=== PATIENT | female | born 1975 | race Caucasian/White ===

== ENCOUNTER 2017-05-18 05:25 | Day surgery (SDC) | payer OTHER ==
[~2017-05-18] VITALS: Ht 165.1 cm; Wt 52.0 kg
[~2017-05-18 05:25] MED LIST: FIORICET 50-301 EACH PO; FIORICET,ESG1 TABLET PO; LOESTRIN FE PO; NAPROSYN500 MG PO; NEXIUM40 MG PO; SPRIX NS; VALACYCLOVIR500 MG PO; VYVANSE50 MG PO; ValTRex PO; Zocor PO; [UNRECOGNIZED DRUG - REMARK]; [UNRECOGNIZED DRUG - REMARK]
[2017-05-18] MEDS ORDERED: TYLENOL EXTRA500 MG PO (05:51)
[2017-05-18 06:03] VITALS: BP 133/62
[2017-05-18 09:48] VITALS: BP 129/72
[2017-05-18 10:50] VITALS: BP 98/60
[2017-05-18 10:59] VITALS: BP 95/54
== END 2017-05-18 11:02 | disposition home or self-care (01) ==
LOC: SDC 05:25
PROC: 0YU60JZ Supplement Left Inguinal Region with Synthetic Substitute, Open Approach (ICD-10-PCS; principal; 2017-05-18)
DX: K40.90 Unilateral inguinal hernia, without obstruction or gangrene, not specified as recurrent (principal); Z22.322 Carrier or suspected carrier of Methicillin resistant Staphylococcus aureus; Z87.891 Personal history of nicotine dependence
CPT/HCPCS: C1781; J0131; J0330; J0690; J1100; J1885; J2250; J2405; J2550; J2704; J3010; Q0175

== ENCOUNTER → 2018-04-12 | Outpatient (CLI) | payer OTHER ==
[~2018-04-12] MED LIST changes: +TYLENOL EXTRA500 MG PO
== END | disposition home or self-care (01) ==
LOC: NUC 08:20
DX: R68.81 Early satiety (principal)
CPT/HCPCS: 78264; A9541